=== PATIENT | female | born 1980 | race Caucasian/White ===

== ENCOUNTER 2018-12-27 21:23 | Inpatient (IN) | payer MEDICAID, OTHER ==
[~2018-12-27] VITALS: Ht 162.6 cm; Wt 57.7 kg
[~2018-12-27 21:23] MED LIST: DOCU-144 PO; FER325 PO
[2018-12-27] MEDS ORDERED: SOD CHLORIDE 0.9% 1,000 ML IV STA (23:58)
[2018-12-28] MEDS ORDERED: SOD CHLORIDE 0.9% 0 ML IV ONE (01:01)
[2018-12-28] MEDS ORDERED: SOD CHLORIDE 0.9% 1,000 ML IV SCH (02:20)
[2018-12-28] MEDS ORDERED: ACETAMINOPHEN 325 MG TAB PO PRN ×2 (02:30→03:30)
[2018-12-28] MEDS ORDERED: ONDANSETRON 4 MG INJ IV PRN ×2 (02:30→03:30)
[2018-12-28] MEDS ORDERED: BISACODYL (EC) 5 MG TAB PO PRN (03:30)
[2018-12-28] MEDS ORDERED: morphine 2 MG INJ IV PRN (03:30)
[2018-12-28] MEDS ORDERED: NACL 0.9% 3 ML SYG IV SCH (03:30)
[2018-12-28] MEDS ORDERED: DOCUSATE SODIUM 100 MG CAP PO PRN (03:30)
[2018-12-28 08:15] VITALS: BP 83/50; PULSE 98; RESP 22
[2018-12-28 08:20] VITALS: Ht 162.6 cm; Wt 57.7 kg
[2018-12-28 11:00] VITALS: BP 129/63; PULSE 60; RESP 19
[2018-12-28] MEDS: CEFTRIAXONE 1 GM/50 ML (PMX) 50 ML IVPB SCH (11:05)
[2018-12-28] MEDS: TRANEXAMIC ACID 1GM/100ML(PMX) 100 ML IV ONE ×2 (14:00→14:33)
[2018-12-28] MEDS: SOD FERRIC GLUC COMPLX 125 MG in SOD CHLORIDE 0.9% 100 ML IVPB SCH (14:38)
[2018-12-28 15:39] VITALS: BP 106/60; PULSE 61; RESP 18
[2018-12-29] VITALS (18 sets, daily range): BP systolic 101–132; BP diastolic 54–68; PULSE 52–73; RESP 11–22
[2018-12-29] MEDS: CEFTRIAXONE 1 GM/50 ML (PMX) 50 ML IVPB SCH (08:00)
[2018-12-29] MEDS ORDERED: FENTAnyl 50 MCG/ML VIAL IV PRN ×2 (09:30)
[2018-12-29] MEDS ORDERED: HYDROmorphONE 1 MG/5 ML IV SYRINGE IV PRN ×3 (09:30)
[2018-12-29] MEDS ORDERED: MEPERIDINE 25 MG INJ IV PRN (09:30)
[2018-12-29] MEDS ORDERED: DIPHENHYDRAMINE 50 MG INJ IV PRN (09:30)
[2018-12-29] MEDS ORDERED: KETOROLAC 30 MG INJ IV PRN (09:30)
[2018-12-29] MEDS ORDERED: ONDANSETRON 4 MG INJ IV PRN (09:30)
[2018-12-29] MEDS ORDERED: METOCLOPRAMIDE 10 MG INJ ONE (09:45)
[2018-12-29] MEDS ORDERED: CEFAZOLIN 1 GM INJ ONE (09:45)
[2018-12-29] MEDS ORDERED: KETOROLAC 30 MG INJ ONE (09:45)
[2018-12-29] MEDS ORDERED: PROPOFOL 20 ML ONE (09:45)
[2018-12-29] MEDS ORDERED: FENTAnyl 50 MCG/ML VIAL ONE (09:45)
[2018-12-29] MEDS: FENTAnyl 50 MCG/ML VIAL IV PRN ×2 (11:25→11:34)
[2018-12-29] MEDS ORDERED: IBUPROFEN 600 MG TAB PO PRN (14:01)
[2018-12-29] MEDS: SOD FERRIC GLUC COMPLX 125 MG in SOD CHLORIDE 0.9% 100 ML IVPB SCH (16:04)
[2018-12-30] VITALS (7 sets, daily range): BP systolic 101–125; BP diastolic 51–59; PULSE 53–67; RESP 16–20
[2018-12-30] MEDS: CEFTRIAXONE 1 GM/50 ML (PMX) 50 ML IVPB SCH (08:18)
[2018-12-30] MEDS: SOD FERRIC GLUC COMPLX 125 MG in SOD CHLORIDE 0.9% 100 ML IVPB SCH (13:13)
[2018-12-30] MEDS ORDERED: SOD CHLORIDE 0.9% 250 ML IV* ONE (13:40)
[2018-12-30] MEDS: HYDROCODONE/APAP (5/325) TAB PO PRN (20:37)
[2018-12-31 04:00] VITALS: BP 107/55; PULSE 51; RESP 18
[2018-12-31 07:26] VITALS: BP 115/67; PULSE 58; RESP 20
[2018-12-31] MEDS: CEFTRIAXONE 1 GM/50 ML (PMX) 50 ML IVPB SCH (09:27)
[2018-12-31 11:13] VITALS: BP 104/53; PULSE 54; RESP 20
[2018-12-31] MEDS: HYDROCODONE/APAP (5/325) TAB PO PRN (11:45)
[2018-12-31 15:44] VITALS: BP 106/55; PULSE 53; RESP 20
== END 2018-12-31 17:57 | disposition home or self-care (01) | DRG 742 ==
LOC: E/R 21:23 → 6WM 12-28 02:21 → EDBEDREQ 12-28 07:01 → EDBEDREQSVC 12-28 07:01 → CANRESERV 12-28 07:21
PROVIDERS: ADMIT Family Medicine; ATTEND Family Medicine
PROC: 30233N1 Transfusion of Nonautologous Red Blood Cells into Peripheral Vein, Percutaneous Approach (ICD-10-PCS; 2018-12-28)
PROC: 0UDB7ZZ Extraction of Endometrium, Via Natural or Artificial Opening (ICD-10-PCS; 2018-12-29)
PROC: 0UJD8ZZ Inspection of Uterus and Cervix, Via Natural or Artificial Opening Endoscopic (ICD-10-PCS; 2018-12-29)
PROC: 0U5B7ZZ Destruction of Endometrium, Via Natural or Artificial Opening (ICD-10-PCS; principal; 2018-12-29 10:00)
PROC: 30233N1 Transfusion of Nonautologous Red Blood Cells into Peripheral Vein, Percutaneous Approach (ICD-10-PCS; 2018-12-30)
DX: N93.8 Other specified abnormal uterine and vaginal bleeding (principal); D62 Acute posthemorrhagic anemia; N39.0 Urinary tract infection, site not specified; D25.9 Leiomyoma of uterus, unspecified; D50.9 Iron deficiency anemia, unspecified
CPT/HCPCS: 36415; 36430; 76830; 76856; 80048; 80053; 81001; 81025; 82728; 83540; 83735; 84100; 84702; 85014; 85018; 85025; 86850; 86900; 86901; 86920; 87086; 88305; 88331; 93970; 96360; 96361; J0690; J0696; J1170; J1885; J2270; J2765; J2916; J3010; J7030; J7040; P9016